=== PATIENT | male | born 1995 | race Caucasian/White ===

== ENCOUNTER 2017-08-22 20:35 | Emergency (ER) | payer OTHER ==
[~2017-08-22] VITALS: Ht 10.2 cm; Wt 102.3 kg
[2017-08-22 20:39] VITALS: TEMP 98
[2017-08-22] MEDS ORDERED: ADVIL200 MG PO (20:46)
[2017-08-22 21:07] LABS: HEMATOCRIT 48.3 % (36.0-47.0); HEMOGLOBIN 16.5 g/dl (12.5-16.1); MEAN CELL VOLUME 87 fl (80.0-95.0); MEAN CORPUSCULAR HEMOGLOBIN 30 pg (26.0-32.0); MEAN CORPUSCULAR HGB CONC 34 g/dl (33.0-37.0); MEAN PLATELET VOLUME 10.3 fl (7.4-10.4); PLATELET COUNT 244 K/mm3 (130-400); RED BLOOD COUNT 5.57 M/mm3 (4.20-5.60); REDCELL DISTRIBUTION WIDTH-CV 12.6 % (11.5-14.5)
[2017-08-22 21:19] LABS: BAND 2 % (0-10); LYMPHOCYTE 8 % (20.0-51.0); NEUTROPHILS 89 % (42.0-75.2); PLATELET ESTIMATE NORMAL (NORMAL)
[2017-08-22] MEDS ORDERED: CLEOCIN HCL300 MG PO (22:44)
[2017-08-22] MEDS ORDERED: NORCO 325 MG-51 TAB PO (22:44)
[2017-08-22] MEDS ORDERED: MAGIC MOUTH PO (22:44)
[2017-08-22 23:06] VITALS: BP 153/91; PULSE 100
== END 2017-08-22 23:06 | disposition home or self-care (01) ==
LOC: COL.ER 20:35
PROVIDERS: Emergency Medicine
DX: J36 Peritonsillar abscess (principal)
CPT/HCPCS: J1100; J1885; J7030